=== PATIENT | male | born 1955 | race Caucasian/White ===

== ENCOUNTER 2022-05-16 07:56 | Outpatient (CLI) | payer MEDICARE, SELFPAY ==
--- NOTE | 2022-05-16 08:20 | ECG_ITS ---
Measurements Intervals [place] Rate: 60 P: CO: 0 QRS: -25 QRSD: 105 T: 44 QT: 402 QTc: 404 Interpretive Statements POOR DATA QUALITY NO DIAGNOSTIC INFORMATION PLEASE REPEAT ECG NO PREVIOUS ECG AVAILABLE FOR COMPARISON Electronically Signed On 05-16-2022 12:51:46 CDT by Jaylon Javed M.D.
== END 2022-05-16 07:57 | disposition home or self-care (01) ==
LOC: ANHSURGERY 08:04
PROVIDERS: PCP Family Medicine; Visit Provider Urology
DX: N40.0 Benign prostatic hyperplasia without lower urinary tract symptoms (principal); I10 Essential (primary) hypertension; Z01.818 Encounter for other preprocedural examination
CPT/HCPCS: 87077; 87086; 87186; 93005

== ENCOUNTER 2022-05-24 01:20 | Day surgery (SDC) | payer MEDICARE, SELFPAY ==
[2022-05-11 15:21] VITALS: BMI 26.3
--- NOTE | 2022-05-11 15:37 | PC.NURSE ---
Report to the Outpatient Waiting Room, entrance under the green pavilion located off [facility], at time __7:15AM on date __05/24/22 . Planned Procedure Time: __9:15AM . Time changes happen often and if your time is changed the preop area will call you the afternoon before. - You and your visitor will be asked to self-screen and do not enter if you have any COVID symptoms. - We encourage only one visitor and NO visitors under age 16 are allowed at this time. Your visitor will receive communication by the phone number that is given day of service. - The patient visitor is requested to social distance or may leave the building when not with patient due to restrictions. - A mask is required within the hospital. Patients may have clear liquids (water, carbonated beverages, clear teas, apple juice) until 3 hours prior to surgery with a maximum of 20 ounces. - No food from midnight until time of surgery Take the following medications with a SIP of water the morning of surgery: _ALBUTEROL INHALER NEEDED Medications to discontinue per physician ___HOLD MELOXICAM AND ALL VITAMINS/SUPPLEMENTS 7 DAYS PRE-OP PER DR HUTCHINSON (PER PT) Date to take last dose__05/17/22 Please no make-up, nail arabic, hairspray, perfume, deodorant, or body powder the day of surgery. No jewelry (including any body piercings) or valuables the day of surgery, leave them at home. Please take a shower or bath the night before, or the morning of, surgery with an antibacterial soap. Wear comfortable, loose fitting clothing. Children are encouraged to wear pajamas. - Jewelry must be removed prior to entering the operating room. Rings and piercings that are not removed may be cut off. - The hospital will not accept responsibility for valuables. - Please leave all valuables, including medications, at home the day of surgery. If you are going home after surgery, a licensed driver starting gate must drive you home. - NO public transportation without another adult. - We recommend that an adult stay with you for 24 hours following discharge. - We also recommend that you do not drive, make important decision, drink alcoholic beverages, or take any drugs that were not prescribed by your health care provider for at least 24 hours after your discharge time. Follow any additional instructions given to you from your surgeon. If you or anyone in your household have experienced Covid symptoms in the past week, please notify your surgeon or the nurse liaison at the phone number below for possible testing. Telephone instructions given to ___PATIENT and asked if any additional questions and then verbalized understanding. Patient advised to call surgeon office or pre surgery nurse liaison [phone] if any additional questions.
--- NOTE | 2022-05-24 06:14 | ECG_ITS ---
Measurements Intervals [place] Rate: 49 P: [place]: 0 QRS: -18 QRSD: 98 T: 46 QT: 446 QTc: 406 Interpretive Statements SINUS BRADYCARDIA WITH FIRST DEGREE AV BLOCK SINUS PAUSES AND JUNCTIONAL ESCAPE COMPLEX ABNORMAL ECG COMPARED TO ECG 05/16/2022 08:40:00 HEART RATE HAS DECREASED Electronically Signed On 05-24-2022 8:11:38 STRATEGY MANAGER by Rajesh Bertrand D.O.
[2022-05-24 07:55] VITALS: BP 144/70; PULSE 41; RESP 14; TEMP 36.2; O2SAT 100
--- NOTE | 2022-05-24 08:18 | WPDANESEPPF ---
Anes - Initial Pre Proc Eval Procedure: Operation Date: 05/24/22 09:15 Proposed Procedures p Urolift - Albert Rodriguez MD Date/Time: 05/24/22 08:18 Surgeon: Albert Rodriguez MD Pre Op Diagnosis: BPH Patient Data Age: 66 Gender: M Height: 1.83 m Weight: 82.5 kg Last Vital Signs Temp 36.2 C L 05/24/22 07:55 Pulse 41 L 05/24/22 07:55 Resp 14 05/24/22 07:55 BP 144/70 H 05/24/22 07:55 Pulse Ox 100 05/24/22 07:55 O2 Del Method Room Air 05/24/22 07:55 Allergies Allergy/AdvReac Type Severity Reaction Status Date / Time No Known Allergies Allergy Verified 05/24/22 07:58 Home Medications Medication Instructions Recorded Confirmed Type albuterol sulfate 90 mcg/actuation 2 puff inhalation Q4-6H PRN Dyspnea 05/11/22 05/11/22 History aerosol inhaler atorvastatin 20 mg tablet 20 mg PO QAM 05/11/22 05/11/22 History cholecalciferol (vitamin D3) 50 50 mcg PO DAILY 05/11/22 05/11/22 History mcg (2,000 unit) capsule lisinopril 10 mg tablet 10 mg PO QAM 05/11/22 05/11/22 History magnesium 250 mg tablet 250 mg PO DAILY 05/11/22 05/11/22 History meloxicam 15 mg tablet 15 mg PO DAILY 05/11/22 05/11/22 History vitamin E mixed 400 unit capsule 400 unit PO DAILY 05/11/22 05/11/22 History Patient hx anesthesia problems: none Family hx anesthesia problems: none Results Review: All pre-operative results and documents have been reviewed as part of the pre-operative evaluation. [facility] Past Medical History Medical History (Updated 05/24/22 @ 08:19 by Anders Luna MD) HTN (hypertension) Social History Social History Smoking packs per day: 0.2 Smoking cigarettes per day: 4.0 Years smoked: 2 Smoking pack-years: 0.40 Smoking status: Former smoker Tobacco type: cigarettes Smoking end date: 01/14/78 Alcohol intake: current Substance use: never Living arrangements: with family Additional living arrangements comments: Spiritual care concerns: No Anes - Eval Final PreProcedure Day of Procedure 05/24/22 08:18 Patient weight: normal Heart: regular rate and rhythm Lungs: clear to auscultation Airway: Mallampati scale class II Neurological: alert and oriented ASA classification: II Emergent: no Anesthesia type and monitoring: general GIVS and standard monitoring Other findings: EKG reviewed by Dr. Javed Results Review: All pre-operative results and documents have been reviewed as part of the pre-operative evaluation. Informed Consent: The patient's anesthetic plan and its attendant risks and benefits were discussed with the patient/family/POA. Questions were solicited and answers provided to the satisfaction of the patient/family/POA.
[2022-05-24] MEDS: LACTATED RINGERS 1,000 ML 30 ML IV CONT (08:29)
--- NOTE | 2022-05-24 08:44 | WPDHPUPDATE1 ---
History and Physical Update Update Date/Time: 05/24/22 08:44 History and Physical has been reviewed, including an updated exam of the patient. There are NO changes in the patient's condition. Risks, benefits, and alternatives have been discussed and questions answered. Patient agrees to proceed with procedure. Proceed with UroLift
[2022-05-24] MEDS: ceFAZolin 2 GM/D5W 50 ML 2 GM/50 ML BAG IVPB (08:58)
[2022-05-24] MEDS: LIDOCAINE HCL 2% GEL UROJET 10 ML PKG MUCOUS MEM (09:09)
--- NOTE | 2022-05-24 09:19 | P.OP_ITS ---
Procedure Note - Detailed Date of Procedure 05/24/22 Pre-op Diagnosis BPH, urinary retention Post-op Diagnosis Same Procedure Performed Uro lift with 4 joyce Surgeon Albert Rodriguez MD Anesthesia General Description of Procedure Patient is taken to the operative suite correctly identified. Once anesthesia was obtained he was placed in dorsal lithotomy position and prepped and draped usual sterile fashion. The UroLift cystoscope was inserted in direct vision. He does not have a significantly obstructive prostate but has slightly elevated bladder neck. We went ahead and placed for joyce by stacking 2 on each side since the length of the prostate was not very much. These were placed at the mi d level of the prostate. There appeared to be an open anterior channel at termination of procedure. 2% viscous lidocaine was inserted urethra patient is taken recovery stable condition. If he is able to void will go home without the catheter. If he is unable to will make a decision regarding placing a catheter for couple days versus having him resume intermittent catheterization. Implants Four joyce Drains No Packing No Pathology None sent Complications No immediate complications Condition Stable Disposition PACU
[2022-05-24 09:22] VITALS: BP 117/60; PULSE 44; RESP 20; O2SAT 99
[2022-05-24 09:45] VITALS: BP 103/69; PULSE 43; RESP 20
[2022-05-24 10:15] VITALS: BP 175/66; PULSE 48; RESP 20
[2022-05-24 10:29] VITALS: BP 175/72; PULSE 46; RESP 20
== END 2022-05-24 10:37 | disposition home or self-care (01) ==
PROVIDERS: PCP Family Medicine; Visit Provider Urology
PROC: 0T7D8DZ Dilation of Urethra with Intraluminal Device, Via Natural or Artificial Opening Endoscopic (ICD-10-PCS; CPT 52441; principal; 2022-05-24 09:15)
DX: N40.1 Benign prostatic hyperplasia with lower urinary tract symptoms (principal); R33.8 Other retention of urine; I10 Essential (primary) hypertension; Z87.891 Personal history of nicotine dependence; Z79.51 Long term (current) use of inhaled steroids
CPT/HCPCS: C9740; 93005; A9270; J0690; J2704; J7120; L8699

== ENCOUNTER 2025-04-01 13:09 | Outpatient (CLI) | payer MEDICARE, SELFPAY ==
--- NOTE | ~2025-04-01 | PE_ITS ---
EXAMINATION: PET_PETPSMAST_PT DATE: 04/02/2025 10:26 INDICATION: Prostate cancer TECHNIQUE: 5.688 mCi of Illucix Ga-[id number]) was administered i.v. Low dose computed tomography (CT) images were acquired from the base of the brain to the base of the brain to the proximal thighs for attenuation correction and anatomic localization. Positron emission tomography (PET) images were acquired in the same distribution beginning 75 minutes after injection. Images including fused PET/CT images were reconstructed in axial, coronal, and sagittal planes. Automated exposure control technique was employed. The dose-length product was 985.29mGy-cm. COMPARISON: None FINDINGS: Head/neck: Typical pattern of symmetric physiologic increased activity in the lacrimal, parotid and submandibular glands as well as along the mucosa of the nasal and oral cavities, pharynx and hypopharynx. No pathologically enlarged cervical lymphadenopathy or suspicious foci of increased uptake in the visualized head or neck. Chest: Calcified left upper lobe nodule along with calcified left hilar lymph nodes consistent with old granulomatous disease. There are couple elongated likely bronchoceles in the right middle lobe. No other suspicious pulmonary nodules, pneumonia, pulmonary edema or pleural effusion. Heart size is normal. Small amount of atherosclerotic coronary artery calcification. No pericardial effusion. Thoracic aorta is normal in caliber. No pathologically enlarged or PSMA avid thoracic lymphadenopathy. Healed right posterior rib fractures versus change of prior thoracotomy. Abdomen/pelvis/proximal thighs: Physiologic renal accumulation and excretion of activity in the kidneys, bladder and along portions of ureters. Prostatomegaly measuring 4.6 x 3.4 cm. There are few small metallic densities in the prostate represent surgical clips, brachial therapy seeds or fiducials markers. Subtle heterogeneous activity in the prostate slightly worse small posterior limb of prominent but still mild activity on the right with maximal SUV of 3.1. Normal degree and slightly heterogenous pattern of increased uptake throughout the liver and spleen without radiologic correlate or dominant PSMA avid lesion. The gallbladder, pancreas and bilateral adrenal glands are normal. Moderate uptake scattered throughout the bowels with typical duodenal and proximal jejunal predominance and without radiologic correlate, also likely physiologic. There is moderate colonic diverticulosis with a sigmoid predominance and without adjacent inflammatory change to suggest diverticulitis. Short segment of the proximal sigmoid colon extends into a large left inguinal hernia with fat extending more distally into the left hemiscrotum. No bowel obstruction. Normal appendix. Small fat- containing umbilical hernia. No other abnormal foci of increased uptake or pathologically enlarged lymphadenopathy in the abdomen, pelvis or proximal thighs. Musculoskeletal: Moderate cervical, thoracic and lumbar spondylosis with bridging osteophytes at multiple levels consistent with diffuse idiopathic skeletal hyperostosis (DISH). A few tiny sclerotic likely bone islands without evident increased uptake in the pelvis and right femoral head. No other suspicious lytic, blastic or abnormally PSMA avid bone lesions. IMPRESSION: 1. Mild prostatomegaly with low-level heterogeneous uptake most prominent focus on the right with maximal SUV of only 3.1 which may represent the site of reported primary prostate cancer with either minimal disease or low PSMA avidity. 2. No lesions suspicious for metastatic disease although given the low activity at the prostate, sensitivity may be lower than typical. Reviewed, dictated and finalized at location A. IMPRESSION: 1. Mild prostatomegaly with low-level heterogeneous uptake most prominent focus on the right with maximal SUV of only 3.1 which may represent the site of repo rted primary prostate cancer with either minimal disease or low PSMA avidity. 2. No lesions suspicious for metastatic disease although given the low activity at the prostate, sensitivity may be lower than typical.
--- OUTSIDE RECORDS SUMMARY | 2025-04-01 14:46 | XMS_ITS | Clinical Summary ---
Author Organization [address] Address [address] [place] [id number] Care Team Providers Care Guard Driver Name Role Phone Willie Williamson MD Unavailable Kenton Ridley MD Primary Care Provider [phone] Allergies Active Allergy Reactions Criticality Noted Date Comments Metoprolol Other (See comments) Low 11/24/2020 Bradycardia, patient is not aware of this allergy. Medications cyanocobalamin (Vitamin B-12) 1,000 mcg tablet Take 1 tablet (1,000 mcg total) by mouth daily Active cholecalciferol (VITAMIN D-3) 5,000 unit capsule Take 2 capsules (10,000 Units total) by mouth daily Active vitamin E (AQUASOL E) 400 unit capsule Take 1 capsule (400 Units total) by mouth daily Active OMEGA-3 FATTY ACIDS-FISH OIL ORAL Take 1 capsule by mouth daily Active owuthxittgjz-Zw-qb on-minerals tablet Take 1 tablet by mouth daily Active vitamin A 2,400 mcg capsule Take 1 capsule (8,000 Units total) by mouth daily Active vitamin B complex capsule Take 1 capsule by mouth daily Active ascorbic acid (VITAMIN C) 100 mg tablet Take 1 tablet (100 mg total) by mouth daily Active iodine 150 mcg tablet Take 2 tablets by mouth daily Active magnesium gluconate 200 mg tabletIndications: hypomagnesemia Take 2.5 tablets (500 mg total) by mouth 2 (two) times a day 2 tablets in am and 2 tablets in pm Active lisinopriL (PRINIVIL,ZESTRIL) 10 mg tabletIndications: Benign essential hypertension TAKE 1 TABLET DAILY 90 tablet 3 4 Active albuterol HFA (PROVENTIL HFA,VENTOLIN HFA,PROAIR HFA) 90 mcg/actuation inhalerIndications :Moderate persistent asthma without complication Inhale 2 puffs every 4 (four) hours as needed for wheezing or shortness of breath 25.5 g 5 Active atorvastatin (LIPITOR) 20 mg tabletIndications: Other hyperlipidemia Take 1 tablet (20 mg total) by mouth daily 90 tablet 5 Active fluticasone propion-salmeteroL (ADVAIR DISKUS) 250-50 mcg/dose diskus inhaler Inhale 1 puff 2 (two) times a day Rinse mouth with water after use. Do not swallow. 3 each 4 5 Active Active Problems Problem Noted Date Diagnosed Date Mild intermittent asthma without complication Assessment & Plan (02/28/2025 7:54 AM CDT): Worsening of mild intermittent asthma using albuterol inhaler about 4 times a week for nocturnal symptoms. We should start controller inhaler. Advair start. 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 From least invasive to most invasive: The only thing to slow the progression of osteoarthritis is weight loss. For every pound lost 4 to 6 pounds of stress is relieved from the knee. Formal physical therapy to help with flexion, extension, mobility and strength. Unloading braces to unload the affected side. The possibility of TENs unit to control pain and swelling. Nonsteroidal anti-inflammatories with the potential of cardiac and GI upset. Steroid and Visco supplement injection. And eventual total knee arthroplasty. After going over the risks, benefits and alternatives will begin with a Medrol Dosepak, meloxicam 15 mg daily, physician directed exercises for both knees and the left shoulder. If no significant improvement in 4-6 weeks call to consider MRI. Impingement syndrome of left shoulder 03/25/2019 Assessment & Plan (03/25/2019 11:34 AM CDT): We discussed the risks, benefits and alternatives. Because he has multiple joints and I am only able to do 2 injections today will begin with a Medrol Dosepak. Meloxicam 15 mg daily. Physician directed exercises given. Whichever joint gives him the most amount of pain and discomfort consider MRI at that time. Benign essential hypertension 03/07/2016 Assessment & Plan (02/23/2025 2:56 PM CDT): Continue lisinopril at same dosage. Well controlled. Hereditary and idiopathic neuropathy, unspecifie d 03/07/2016 Mixed hyperlipidemia 03/07/2016 Assessment & Plan (02/28/2025 7:56 AM CDT): Worsening lipidemia as reflected by higher total cholesterol and higher LDL. Recommend increase atorvastatin to 40 mg. Increase dosage declined. We will repeat lipids Unspecified asthma, uncomplicated 03/07/2016 Personal history of malignant melanoma of skin 0 08/09/2012 Encounters Date Type Department Care Team Description 02/28/2025 7:30 AM CDT Office Visit [facility] [address] [place] [address] Kenton Ridley MD Encounter for Medicare annual wellness exam (Primary Dx); Mild intermittent asthma without complication; Mixed hyperlipidemia; Benign essential hypertension 01/29/2025 10:[address] [facility] Care [address] [place] [phone] Aster Mendez NP Moderate persistent asthma without complication (Primary Dx); Other hyperlipidemia 01/29/[address] [facility] [address] [place] [phone] Carrothers Lolita Med Refill from Last 3 Months Immunizations Immunization Administration Dates Next Due Influenza, Unspecified 05/22/2024(Deferr ed: Patient Refused),04/16/2023(Deferred: Patient decision),03/27/2023(Deferred: Patient Refused),06/30/2022(Deferred: Patient Refused),04/16/2022(Deferred: Patient decision),06/24/2021(Deferred: Patient Refused) Surgical History Surgery Date Site/Laterality Comments LUNG SURGERY right side nodule MALIGNANT SKIN LESION EXCISION back DUPUYTREN CONTRACTURE RELEASE 08/17/2022 Right right ring finger CATARACT EXTRACTION Left Medical History Medical History Date Comments Hypertension Hyperlipidemia Allergic Asthma Cancer (HCC) 2014 melanoma,back Family History Medical History Relation Name Comments Hyperlipidemia Brother Elmer Cancer Father Delaney Heart disease Father Delaney Asthma Mother Dalton Relation Name Status Comments Brother Elmer Alive Father Delaney Mother Dalton Alive Social History Tobacco Use Types Packs/Day Years Used Date Smoking Tobacco: Former Cigarettes Q uit: 1974 Smokeless Tobacco: Never Tobacco Cessation:Counseling Given: Not Answered Alcohol Use Standard Drinks/Week Comments Yes 0 (1 standard drink = 0.6 oz pur e alcohol) socially AUDIT-C Answer Date Recorded Q1: How often do you have a drink containing alc ohol? 2-4 times a month 05/19/2023 Q2: How many drinks containi ng alcohol do you have on a typical day when you are drinking? 1 or 2 05/19/2023 Q3: How often do you have si x or more drinks on one occasion? Never 05/19/2023 PHQ-2 Answer Date Recorded PHQ-2 Total Score (If total score is 3 or more points, staff should administer the PHQ-9) 0 02/28/2025 PHQ-9 Answer Date Recorded PHQ-9 Total Score 2 01/05/2024 Personal Safety Answer Date Recorded Have you ever been in or are you currently in a harmful physical or emotional relationship or is someone making you feel afraid or unsafe? Denies 03/15/2023 Sex and Gender Information Value Date Recorded Sex Assigned at Not on file Legal Sex Male 12:44 PM [employer] WORK[employer] Gender Identity Not on file Sexual Orientation Not on file Occupation Industry Job Start Date Job End Date retired Not on file Not on file Not on file Obstetrics History Last Filed Vital Signs Vital Sign Reading Time Taken Comments Blood Pressure 132/60 02/28/2025 7:33 AM CDT Pulse 52 02/28/2025 7:33 AM CDT Temperature 36.1 C (97 F) 02/28/2025 7:33 AM CDT Respiratory Rate 18 02/28/2025 7:33 AM CDT Oxygen Saturation 98% 02/28/2025 7:33 AM CDT Inhaled Oxygen Concentration - - Weight 77.5 kg (170 lb 14.4 oz) 02/28/2025 7:33 AM CDT Height 177.8 cm (5' 10) 02/28/2025 7:33 AM CDT Body Mass Index 24.52 02/28/2025 7:33 AM CDT Plan of Treatment Health Maintenance Due Date Last Done Comments DTaP/Tdap/Td Vaccine (1 - Tdap) 1964 Hepatitis B Screening 1971 Zoster Vaccine (1 of 2) 2003 Abdominal Aortic Aneurysm (AAA) Screen 2018 Covid-19 Vaccine (2 - season) 2025 02/22/2022 Influenza Vaccine (#1) 2025 Depression Screening 02/28/2026 02/28/2025, 01/05/2024, 01/05/2024, Additional history exists Fall Risk Assessment 02/28/2026 02/28/2025, 01/05/2024, 03/27/2023, Additional history exists Pneumococcal vaccine 65+ (1 of 2 - PCV) 02/28/2026 Postponed from 1972 (Patient declined, but will receive in the future) Well Visit 65+ 02/28/2026 02/28/2025, 06/2 07/2023, 01/05/2024, Additional history exists Colon Cancer Screening-DNA Stool 04/20/2026 04/20/2023 Hepatitis C Screening Completed 03/01/2023 Prostate Cancer Screening-PSA Discontinued 03/01/2023, 02/22/2022, 02/26/2021, Additional history exists Colon Cancer Screening-FIT Discontinued 04/20/2023 Procedures Procedure Name Priority Date/Time Associated Diagnosis Comments STOOL DNA COLOGUARD Routine 04/20/2023 10:00 AM CDT Screening for colon cancer HEPATITIS C ANTIBODY Routine 03/01/2023 7:31 AM CDT Benign essential hypertension Hereditary and idiopathic neuropathy, unspecified Other hyperlipidemia Second degree heart block Encounter for hepatitis C screening test for low risk patient Elevated glucose PSA SCREEN Routine 03/01/2023 7:31 AM CDT Benign essential hypertension Hereditary and idiopathic neuropathy, unspecified Other hyperlipidemia Second degree heart block Encounter for hepatitis C screening test for low risk patient Elevated glucose from Last 3 Months or Most Recently Relevant to Health Maintenance Results * Stool DNA - Cologuard (04/20/2023 10:00 AM CDT) Stool DNA - Cologuard Negative Negative [employer] (CLIA #:[id number]) Comment: NEGATIVE TEST RESULT. A negative Cologuard result indicates a low likelihood that a colorectal cancer (CRC) or advanced adenoma (adenomatous polyps with more advanced pre-malignant features) is present. The chance that a person with a negative Cologuard test has a colorectal cancer is less than 1 in 1500 (negative predictive value >99.9%) or has an advanced adenoma is less than 5.3% (negative predictive value 94.7%). These data are based on a prospective cross-sectional study of 10,000 individuals at average risk for colorectal cancer who were screened with both Cologuard and colonoscopy. (Justine Marquez al, N Engl J Med 2014;370(14):1354-4764) The normal value (reference range) for this assay is negative. COLOGUARD RE-SCREENING RECOMMENDATION: Periodic colorectal cancer screening is an important part of preventive healthcare for asymptomatic individuals at average risk for colorectal cancer. Following a negative Cologuard result, the [place] [employer] Society and U.S. Multi-Society Task Force screening guidelines recommend a Cologuard re-screening interval of 3 years. References: [place] [employer] Guideline for Colorectal Cancer Screening: https://www.cancer.org/cancer/hqwaz-qnypxr-kjlpun/iaxtwswmi-mmfskxxeu-cgkmhuz/ac s-rec ommendations.html.; Gato TREADWELL, Florencio CR, Karthik ZAYAS, Colorectal Cancer Screening: Recommendations for Physicians and Patients from the U.S. Multi-Society Task Force on Colorectal Cancer Screening , Am J Gastroenterology 2017; 112:4418-2965. TEST DESCRIPTION: Composite algorithmic analysis of stool DNA-biomarkers with hemoglobin immunoassay. Quantitative values of individual biomarkers are not reportable and are not associated with individual biomarker result reference ranges. Cologuard is intended for colorectal cancer screening of adults of either sex, 45 years or older, who are at average-risk for colorectal cancer (CRC). Cologuard has been approved for use by the U.S. FDA. The performance of Cologuard was established in a cross sectional study of average-risk adults aged 50-84. Cologuard performance in patients ages 45 to 49 years was estimated by sub-group analysis of near-age groups. Colonoscopies performed for a positive result may find as the most clinically significant lesion: colorectal cancer [4.0%], advanced adenoma (including sessile serrated polyps greater than or equal to 1cm diameter) [20%] or non- advanced adenoma [31%]; or no colorectal neoplasia [45%]. These estimates are derived from a prospective cross-sectional screening study of 10,000 individuals at average risk for colorectal cancer who were screened with both Cologuard and colonoscopy. (Justine Marquez al, N Engl J Med 2014;370(14):5879-4819.) Cologuard may produce a false negative or false positive result (no colorectal cancer or precancerous polyp present at colonoscopy follow up). A negative Cologuard test result does not guarantee the absence of CRC or advanced adenoma (pre-cancer). The current Cologuard screening interval is every 3 years. ([place] [employer] Society and U.S. Multi-Society Task Force). Cologuard performance data in a 10,000 patient pivotal study using colonoscopy as the reference method can be accessed at the following location: www.[employer]Com[employer].com/results. Additional description of the Cologuard test process, warnings and precautions can be found at www.[employer].com. Stool 04/20/2023 10:0 0 AM CDT 04/22/2023 3:51 PM CDT Noel Gimenez MD LAB BODY FLUIDS AND STOOLS ORDERABLES Final Result [facility] (CLIA #:[id number]) [place] [address] * PSA screen (03/01/2023 7:31 AM CDT) PSA-Total 3.63 <=5.40 ng/mL [facility] Comment: Interpretive Data AGE SEX REFERENCE INTERVAL 0 minutes-150 years Female None 0 minutes-49 years Male None 50-59 years Male 0-3.90 60-69 years Male 0-5.40 70-79 years Male 0-6.20 80-150 years Male 0-6.20 The Melissa PSA Total assay procedure was used. Results from different manufacturers or methods may not be comparable. Serial testing should be performed using the same method. Current interpretive data last revised 21. Testing performed by: [facility], [address] [place] [address]., [id number] Blood 03/01/2023 7:31 AM CDT 03/01/2023 8:24 AM CDT us Annie RAIN LAB BLOOD ORDERABLES Final Res ult Performing Organization Address [facility] Co de Phone Number [id number] [id number] [facility] Department [place] [address] * Hepatitis C antibody (03/01/2023 7:31 AM CDT) Hep C Ab Nonreactive Nonreactive [facility] Comment: Interpretive Data Nonreactive: Antibodies to HCV not detected. Does NOT exclude the possibility of recent exposure to HCV. Equivocal: Equivocal for HCV antibodies. Supplemental molecular testing will be automatically performed to determine infection status in accordance with current CDC screening recommendations. Reactive: Positive for HCV antibodies. This may represent current or past HCV infection. Supplemental molecular testing will be automatically performed to determine current infection status in accordance with current CDC screening recommendations. Interpretive data was last revised on 2019. Blood 03/01/2023 7:31 AM CDT 03/01/2023 10:37 AM CDT us Annie Priscilla Cloin PA LAB MICROBIOLOGY - GENERAL ORD ERABLES Final Result [facility] [id number] [facility] Department [place] [address] from Last 3 Months or Most Recently Relevant to Health Maintenance Insurance MEDICARE RAILROAD [facility]HC MEDICARE ADVANTAGE [facility] MEDIC[facility] Address: [address] [address] [place] [address] Care Teams Guard Driver Relationship Specialty Start Date End Date Kenton Ridley MD [address] [place] [address] PCP - General Family Medicine 02/28/25 Willie Williamson MD [facility] [address] [place], [place] [address] Referring Physician Cardiovascular Disease 03/06/23
--- OUTSIDE RECORDS SUMMARY | 2025-04-01 14:46 | XMS_ITS | Encounter Summary ---
Author Organization [facility] Healthcare Address [address] [place] [id number] Care Team Providers Care Shipping And Receiving Specialist Name Role Phone Noel Gimenez MD Primary Care Provid er Willie Williamson MD Unavailable Kenton Ridley MD Primary Care Provider [phone] Encounter Details Date Type Department Care Team (Late st Contact Info) Description 07/24/2023 Documentation [facility] OP Physical Therapy [facility] [address] [address] Gertrudis Reich, PT Social History Tobacco Use Types Packs/Day Years Used Date Smoking Tobacco: Former Cigarettes Q uit: 1974 Smokeless Tobacco: Never Alcohol Use Standard Drinks/Week Comments Yes 0 [...] points, staff should administer the PHQ-9) 0 05/19/2023 Personal Safety Answer Date Recorded Have you ever been in or are you currently in a harmful physical or emotional relationship or is someone making you feel afraid or unsafe? 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 Gender Identity Not on file Sexual Orientation Not on file Occupation Industry Job Start Date Job End Date retired Not on file Not on file Not on file documented as of this encounter Plan of Treatment Not on file documented as of this encounter Visit Diagnoses Not on filedocumented in this encounter Care Teams Shipping And Receiving Specialist Relationship Specialty Start Date End Date Noel Gimenez MD [address] [place] [address] PCP - General Family Medicine 12/24/18 02/27/25 Kenton Ridley MD [address] [place] [id number] PCP - General Family Medicine 02/28/25 Willie Williamson MD [address] [address] Referring Physician Cardiovascular Disease 03/06/23 documented as of this encounter
== END 2025-04-01 13:10 | disposition home or self-care (01) ==
PROVIDERS: Visit Provider Urology
DX: C61 Malignant neoplasm of prostate (principal); N40.0 Benign prostatic hyperplasia without lower urinary tract symptoms
CPT/HCPCS: 78815; A9596